=== PATIENT | male | born 1960 | race Caucasian/White ===

== ENCOUNTER → 2018-03-24 | Outpatient (CLI) | payer BC ==
[~2018-03-24] MED LIST: EFFSR150; LISI-725; OXCA600T2; RISPERDAL; [UNRECOGNIZED DRUG - REMARK]
--- NOTE | 2018-03-24 23:22 | DIAGNOSTIC IMAGING REPORT ---
PARATHYROID IMAGING HISTORY: HYPERPARATHYROIDISM TECHNIQUE: 15 minutes and 3 hours following the intravenous administration of 22 mCi of technetium 99 M Cardiolite, static and SPECT images of the neck and chest were performed. COMPARISON STUDY: None. FINDINGS: There is a small focus of radiotracer uptake inferior to the right thyroid lobe which faintly persists on delayed sequences. IMPRESSION: Small focus of radiotracer uptake inferior to the right thyroid lobe which may represent a parathyroid adenoma. Consider follow-up thyroid ultrasound for further evaluation. Electronically signed by: Vimal Zepeda M.D. 03/24/2018 11:20 PM Dictated Date/Time: 03/24/2018 11:16 PM
== END | disposition home or self-care (01) ==
LOC: C.NUCL 16:07
PROVIDERS: ATTEND Family Medicine
DX: E21.3 Hyperparathyroidism, unspecified (principal); R93.8 Abnormal findings on diagnostic imaging of other specified body structures

== ENCOUNTER → 2018-04-03 | Outpatient (CLI) | payer BC ==
--- NOTE | 2018-04-03 15:01 | DIAGNOSTIC IMAGING REPORT ---
THYROID/NECK ULTRASOUND CLINICAL HISTORY: Hyperparathyroidism. Abnormal sestamibi scan. COMPARISON STUDY: Sestamibi scan March 24, 2018. TECHNIQUE: Sonography of the thyroid and neck gland was performed. FINDINGS: The right thyroid lobe measures 5.4 x 1.6 x 1.8 cm and the left lobe measures 4.2 x 1.3 x 1.5 cm. A few tiny cystic nodules within the thyroid gland have benign imaging characteristics. There are no suspicious thyroid nodules. No hypoechoic nodule is identified inferior to the right thyroid lobe to correspond to the focus shown on exam of March 24, 2018. IMPRESSION: No sonographic evidence of a parathyroid adenoma. However, this does not exclude the possibility of an adenoma. Electronically signed by: Jesus Eugene M.D. 04/03/2018 2:59 PM Dictated Date/Time: 04/03/2018 2:55 PM
== END | disposition home or self-care (01) ==
LOC: C.ULTR 14:10
PROVIDERS: ATTEND Internal Medicine
DX: E83.52 Hypercalcemia (principal)